=== PATIENT | male | born 1945 | race Caucasian/White ===

== ENCOUNTER 2018-06-11 20:08 | Observation (INO) | payer MEDICARE ==
[2018-06-11 20:09] VITALS: BMI 19.8
[2018-06-11] MEDS ORDERED: Albuterol-Ipratrop 3 mg / 0.5 (3 ml) UD IH STA (21:35)
[2018-06-11] MEDS ORDERED: Albuterol-Ipratrop 3 mg / 0.5 (3 ml) UD ONE (21:43)
[2018-06-11 22:00] LABS: BASO # 0.1 K/uL (0.0-0.2); BASO % 0.9 % (0.0-2.0); EOS # 0.2 K/uL (0.0-0.7); EOS % 3.3 % (0.0-4.0); HEMOGLOBIN 9.1 g/dL (12.0-18.0); LYMPH # 0.7 K/uL (1.0-4.3); MEAN CELL VOLUME 97.2 fL (80.0-94.0); MEAN CORPUSCULAR HEMOGLOBIN 31.5 pg (27.0-31.0); MEAN CORPUSCULAR HGB CONC 32.4 g/dL (33.0-37.0); MONO # 0.7 K/uL (0.0-0.8); MONO % 11.6 % (0.0-10.0); NEUT # 4.5 K/uL (1.8-7.0); NEUT % 73.2 % (50.0-75.0); NRBC % 0.1 % (0.0-2.0); RBC 2.9 Mil/uL (4.40-5.90); RED CELL DISTRIBUTION WIDTH 16.3 % (11.5-14.5); WHITE BLOOD COUNT 6.1 K/uL (4.8-10.8)
[2018-06-11 22:03] LABS: INR 1.3; PROTHROMBIN TIME 14.2 SECONDS (9.7-12.2)
[2018-06-11 22:06] LABS: ALBUMIN 3.3 g/dL (3.5-5.0); CALCIUM 8.6 mg/dl (8.6-10.4)
--- NOTE | 2018-06-11 23:41 | C.PDOC ---
History Of Present Illness [facility] due to L[facility] swelling to rule out DVT. However, the pt was sent during the evening time while vascular US is only available during the day time in this hospital. Time Seen by Provider: 06/11/18 21:16 Chief Complaint (Nursing): Upper Extremity Problem/Injury History Per: Patient, Other ([facility] records) Onset/Duration Of Symptoms: Days (about 1 week) Current Symptoms Are (Timing): Still Present Severity: Moderate Additional History Per: [facility], Prior Records Past Medical History Reviewed: Historical Data, Nursing Documentation, Vital Signs Vital Signs: Last Vital Signs Temp 98.3 F 06/11/18 20:19 Pulse 61 06/11/18 20:19 Resp 20 06/11/18 20:19 BP 93/58 L 06/11/18 20:19 Pulse Ox 93 L 06/11/18 20:19 - Medical History PMH: Anxiety, CHF, COPD, HTN, Hyperlipidemia, Hypothyroidism Surgical History: Pacemaker Family History: States: Unknown Family Hx - Social History Hx Alcohol Use: No Hx Substance Use: No - Immunization History Hx Tetanus Toxoid Vaccination: Yes Hx Influenza Vaccination: Yes Hx Pneumococcal Vaccination: Yes Review Of Systems Except As Marked, All Systems Reviewed And Found Negative. Constitutional: Negative for: Fever Cardiovascular: Negative for: Chest Pain Respiratory: Positive for: Shortness of Breath Gastrointestinal: Negative for: Vomiting, Abdominal Pain Musculoskeletal: Negative for: Neck Pain, Arm Pain, Back Pain, Hand Pain, Leg Pain Neurological: Negative for: Weakness, Numbness Physical Exam - Physical Exam Appears: Chronically Ill Skin: Warm, Dry Head: Atraumatic, Normacephalic Eye(s): bilateral: PERRL Neck: Normal ROM, Supple Cardiovascular: Rhythm Regular Respiratory: No Accessory Muscle Use, Wheezing (mild) Gastrointestinal/Abdominal: Soft, No Tenderness Back: No CVA Tenderness Extremity: Normal ROM, No Tenderness, Capillary Refill (wnl), Swelling (Distal left arm/proximal left forearm) Pulses: Left Radial: Normal Neurological/Psych: Oriented x3, Normal Motor, Normal Sensation ED Course And Treatment - Laboratory Results Result Diagrams: 06/11/18 21:49 06/11/18 21:49 O2 Sat by Pulse Oximetry: 93 - Radiology CXR: Interpreted by Me, Viewed By Me CXR Interpretation: Yes: Cardiomegaly - Other Rad Left forearm x-rays X-Ray: Interpreted by Me, Viewed By Me Interpretation: No acute fx. Disposition Discussed With DrDionna: Jacki Edmondson Comment: He will keep pt for observation on his service overnight and will obtain a LUE duplex to r/o DVT in the AM. Doctor Will See Patient In The: Hospital Counseled Patient/Family Regarding: Studies Performed, Diagnosis - Disposition Disposition: HOSPITALIZED Disposition Time: 23:46 Condition: FAIR - Clinical Impression Clinical Impression: Left upper extremity swelling
[2018-06-12] MEDS ORDERED: Magnesium Hydroxide Susp 30 ml UD PO PRN (00:29)
[2018-06-12] MEDS ORDERED: Sod Polystyrene Sulf 15 gm/60 ml Susp PO PRN (00:29)
[2018-06-12] MEDS ORDERED: Albuterol-Ipratrop 3 mg / 0.5 (3 ml) UD IH PRN ×2 (00:29→19:30)
[2018-06-12] MEDS ORDERED: LEVALBUTEROL HCL 1.25 MG IH PRN ×2 (00:29→19:30)
[2018-06-12] MEDS ORDERED: PETROLATUM TP SCH (06:00)
[2018-06-12] MEDS ORDERED: Bacitracin Ointment 30 GM TUBE TOP SCH (06:00)
[2018-06-12] MEDS ORDERED: ZINC OXIDE TP SCH (06:00)
[2018-06-12] MEDS ORDERED: [UNRECOGNIZED DRUG - OTHER] TP SCH (06:00)
[2018-06-12] MEDS ORDERED: Levothyroxine 50 MCG TAB PO SCH (06:30)
[2018-06-12] MEDS: (Novolog) Insulin Aspart, Recombinant 100 u/ml 10 ml vial SC SCH ×3 (08:08→17:45)
--- NOTE | 2018-06-12 09:14 | RAD ---
Date of service: 06/11/2018 PROCEDURE: Radiographs of the Left Forearm HISTORY: Proximal swelling COMPARISON: None available. TECHNIQUE: Frontal and lateral views obtained. FINDINGS: BONES: No fracture or destructive lesion. No periosteal reaction seen to suggest osteomyelitis. Negative ulnar variance suggested JOINT SPACES: Advanced arthrosis hyper trophic elbow joint OTHER FINDINGS: Subcutaneous reticulated edema no gas-forming cellulitis noted. IMPRESSION: No fracture or lytic lesion. No radiographic evidence of osteomyelitis. . Diffuse subcutaneous reticulated edema consistent with lymphedema and/or cellulitis. No gas-forming cellulitis suggested. Hyper trophic elbow arthrosis
--- NOTE | 2018-06-12 09:20 | RAD ---
Date of service: 06/11/2018 HISTORY: Left forearm swelling. Wheezing. COMPARISON: 10/04/2013 FINDINGS: LUNGS: There is vague increased opacity possibly due to summation of soft tissues of the anterior right ribs and posterior right ribs in the lateral mid right lung zone compared the prior study. No dense consolidation seen. PLEURA: No significant pleural effusion identified, no pneumothorax apparent. CARDIOVASCULAR: Cardiomegaly. Position/ configuration of pacemaker Satisfactory. Midline sternotomy. Mitral valvular prosthesis re- suggested. OSSEOUS STRUCTURES: No significant abnormalities. VISUALIZED UPPER ABDOMEN: Normal. OTHER FINDINGS: None. IMPRESSION: Vague increased opacity lateral right mid lung zone possibly due to summation of soft tissues. Consider bilateral oblique views and/or a noncontrast CT chest to clarify -if needed
[2018-06-12] MEDS ORDERED: Budesonide 0.5 mg/2 ml Inhal Susp UD IH SCH ×2 (10:00→20:00)
[2018-06-12] MEDS ORDERED: Enoxaparin 40 mg Syringe SC SCH (10:00)
[2018-06-12] MEDS ORDERED: Home Med 1 UNIT (Multivitamin [Multivitamins] 1 EACH) PO SCH (10:00)
[2018-06-12 11:33] LABS: BASO # 0.1 K/uL (0.0-0.2); BASO % 0.9 % (0.0-2.0); EOS # 0.2 K/uL (0.0-0.7); EOS % 2.8 % (0.0-4.0); HEMOGLOBIN 9.5 g/dL (12.0-18.0); LYMPH # 0.7 K/uL (1.0-4.3); LYMPH % 12.4 % (20.0-40.0); MEAN CELL VOLUME 96.9 fL (80.0-94.0); MEAN CORPUSCULAR HEMOGLOBIN 31.9 pg (27.0-31.0); MEAN CORPUSCULAR HGB CONC 32.9 g/dL (33.0-37.0); MEAN PLATELET VOLUME 7.7 fL (7.2-11.7); MONO # 0.6 K/uL (0.0-0.8); MONO % 11.3 % (0.0-10.0); NEUT # 4.1 K/uL (1.8-7.0); NEUT % 72.6 % (50.0-75.0); NRBC % 0.1 % (0.0-2.0); RBC 2.99 Mil/uL (4.40-5.90); WHITE BLOOD COUNT 5.7 K/uL (4.8-10.8)
[2018-06-12 11:44] LABS: CALCIUM 8.6 mg/dl (8.6-10.4); URIC ACID 7.1 mg/dL (3.5-8.5)
[2018-06-12] MEDS: Sacubitril/Valsartan 49-51 Tab PO SCH ×2 (11:44→17:46)
--- NOTE | 2018-06-12 15:28 | CP.PCM.PN ---
Subjective - Date & Time of Evaluation Date of Evaluation: 06/12/18 Time of Evaluation: 15:28 - Subjective Subjective: alert, awake, no sob or leg pains, lower extremity swelling remains. Objective - Vital Signs/Intake and Output Vital Signs (last 24 hours): Temp Pulse Resp BP Pulse Ox 98 F 72 20 122/69 98 06/12/18 07:30 06/12/18 07:30 06/12/18 07:30 06/12/18 07:30 06/12/18 07:30 - Medications Medications: Current Medications Acetaminophen (Tylenol 325mg Tab) 650 mg PO Q4 PRN PRN Reason: Pain, Mild (1-3) Albuterol/Ipratropium (Duoneb 3 Mg/0.5 Mg (3 Ml) Ud) 3 ml IH Q4H PRN PRN Reason: wheezing/sob Allopurinol (Zyloprim) 100 mg PO DAILY [facility] Last Admin: 06/12/18 10:40 Dose: 100 mg Alprazolam (Xanax) 0.25 mg PO HS PRN PRN Reason: Anxiety Stop: 06/19/18 00:30 Aspirin (Aspirin Chewable) 81 mg PO DAILY [facility] Last Admin: 06/12/18 10:40 Dose: 81 mg Bacitracin (Bacitracin) 30 gm TOP QSHIFT [facility] Last Admin: 06/12/18 13:45 Dose: 1 applic Budesonide (Pulmicort Respules) 0.5 mg IH BID [facility] Carvedilol (Coreg) 6.25 mg PO Q12 [facility] Last Admin: 06/12/18 10:40 Dose: 6.25 mg Clopidogrel Bisulfate (Plavix) 75 mg PO DAILY [facility] Last Admin: 06/12/18 10:39 Dose: 75 mg Enoxaparin Sodium (Lovenox) 40 mg SC DAILY [facility] Last Admin: 06/12/18 10:40 Dose: 40 mg Famotidine (Pepcid) 20 mg PO DAILY [facility] Last Admin: 06/12/18 10:39 Dose: 20 mg Folic Acid (Folic Acid) 1 mg PO DAILY [facility] Last Admin: 06/12/18 10:39 Dose: 1 mg Home Med (Levalbuterol Hcl [Xopenex]) 1.25 mg IH TID PRN PRN Reason: Shortness of Breath Home Med (Multivitamin [Multivitamins]) 1 each PO DAILY [facility] Home Med (Zinc Oxide/Cl-Xylenol/Petrolat [Perishield Ointment]) 100 gm TP QSHIFT [facility] Insulin Aspart (Novolog) 0 unit SC ACHS [facility] PRN Reason: Protocol Last Admin: 06/12/18 12:35 Dose: 6 u Levothyroxine Sodium (Synthroid) 50 mcg PO DAILY@0630 [facility] Last Admin: 06/12/18 05:55 Dose: 50 mcg Magnesium Hydroxide (Milk Of Magnesia) 30 ml PO DAILY PRN PRN Reason: Constipation Risperidone (Risperdal Tab) 0.5 mg PO Q12 PRN PRN Reason: Psychosis Rosuvastatin Calcium (Crestor) 20 mg PO HS [facility] Sacubitril/Valsartan (Entresto 49 Mg-51 Mg) 1 tab PO BID [facility] Last Admin: 06/12/18 11:44 Dose: 1 tab Sodium Polystyrene Sulfonate (Kayexalate Susp) 15 gm PO DAILY PRN PRN Reason: elevated potassium Spironolactone (Aldactone) 25 mg PO DAILY [facility] Last Admin: 06/12/18 10:40 Dose: 25 mg Thiamine HCl (Vitamin B1 Tab) 100 mg PO DAILY [facility] Last Admin: 06/12/18 10:39 Dose: 100 mg - Labs Labs: 06/12/18 11:29 06/12/18 11:29 PT 14.2 SECONDS (9.7-12.2) H 06/11/18 21:49 INR 1.3 06/11/18 21:49 APTT 34 SECONDS (21-34) 06/11/18 21:49 Assessment and Plan - Assessment and Plan (Free Text) Assessment: Patient was sent from the half-way due to increase on the legs to rule out DVT. Patient is seen and examined, alert, awake, no complaints of chest pain or distress. Venous doppler study is negative fot DVT. Discussed with DR Edmondson, plan to send him back to the half-way on present medications.
--- NOTE | 2018-06-12 15:33 | PCM.HF ---
Heart Failure Core Measure - Heart Failure Left Ventricular Function to be assessed after discharge: Yes Beta-Winifred Prescribed: Carvedilol Aldosterone Antagonist Prescribed: Yes Implantable Cardioverter Defibrillator Therapy: Yes
[2018-06-12 16:50] VITALS: BP 119/76; PULSE 78; RESP 22; TEMP 98.1; O2SAT 95
[2018-06-12] MEDS ORDERED: Zinc Oxide Topical 30 gm Tube TOP SCH (22:00)
[2018-06-12] MEDS ORDERED: ROSUVASTATIN 20MG PO SCH (22:00)
--- NOTE | 2018-06-13 07:48 | HP ---
HISTORY OF PRESENT ILLNESS: The patient is a 72-year-old male who was in subacute rehabilitation and noticed to have left upper extremity swelling. The patient denied to have any history of trauma and denied to have any pain on the left upper extremity. The patient was brought to emergency room for evaluation and venous Doppler of the upper extremities was ordered, and the patient was admitted for further management. Other review of system is negative. ALLERGIES: NO KNOWN ALLERGIES. MEDICATIONS: Reviewed as per an MAR. PAST MEDICAL HISTORY: Hypertension, COPD, type 2 diabetes mellitus, hypothyroidism, coronary artery disease, degenerative spine disease. SOCIAL HISTORY: Ex-smoker. No EtOH or substance abuse. FAMILY HISTORY: Not contributory. PHYSICAL EXAMINATION: VITAL SIGNS: Blood pressure 119/76, temperature 98.1, respiratory rate 22, and pulse 78. HEENT: Pupils equal and reactive to light. Normal appearing mucosa of the conjunctivae, oropharynx and nasal membrane mucosa. NECK: Supple. No JVD. No carotid bruit. No lymph node. No thyromegaly. CHEST AND LUNGS: Bilateral symmetrical expansion. Good air exchange. No rales, no rhonchi. CARDIOVASCULAR SYSTEM: PMI not localized. S1, S2. No additional sounds. ABDOMEN: Normoactive bowel sounds. No tenderness. No organomegaly. No masses. EXTREMITIES: There is swelling of the left upper extremity compared to the right. 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 No neurological deficit could be appreciated. ASSESSMENT: 1. Swelling of the left upper extremity, rule out deep venous thrombosis. 2. Chronic obstructive pulmonary disease. 3. Coronary artery disease. 4. Hypertension. PLAN: Continue current medications, and follow the venous Doppler. If negative, we will discharge the patient back to [facility]. Jacki Edmondson MD
[2018-06-13] MEDS ORDERED: Multiple Vitamins Tab PO SCH (10:00)
--- NOTE | 2018-06-13 11:19 | VASCLAB ---
Date of service: 06/12/2018 PROCEDURE: Left Upper Extremity Venous Duplex Exam HISTORY: SWELLING PRIORS: None. TECHNIQUE: Left upper extremity, internal jugular, subclavian, axillary, brachial, ulnar, radial, basilic and upper cephalic veins were evaluated. Flow was assessed with color Doppler, compressibility, assessment of phasic flow and augmentation response. Report prepared by ELIANE Schmitz, RVT FINDINGS: LEFT: 1. Internal Jugular: 1.1. Compressibility - Fully compressible: Thrombus - None : Flow - Phasic: Augmentation -Normal: Reflux - None. 2. Subclavian: 2.1. Compressibility - Fully compressible: Thrombus - None : Flow - Phasic: Augmentation -Normal: Reflux - None. 3. Axillary: 3.1. Compressibility - Fully compressible: Thrombus - None : Flow - Phasic: Augmentation -Normal: Reflux - None. 4. Brachial: 4.1. Compressibility - Fully compressible: Thrombus - None: Flow - Phasic: Augmentation -Normal: Reflux - None. 5. Ulnar: 5.1. Compressibility - Fully compressible: Thrombus - None: Flow - Phasic: Augmentation -Normal: Reflux - None. 6. Radial: 6.1. Compressibility - Fully compressible: Thrombus - None: Flow - Phasic: Augmentation - Normal: Reflux - None. 7. Cephalic: 7.1. Compressibility - Fully compressible: Thrombus - None: Flow - Phasic: Augmentation -Normal: Reflux - None. 8. Basilic: 8.1. Compressibility - Fully compressible: Thrombus - None: Flow - Phasic: Augmentation -Normal: Reflux - None. OTHER FINDINGS: Left: None. IMPRESSION: Left: No evidence of vein thrombosis of the left upper extremity with excellent venous flow. Normal valve function noted of the left side. Normal venous flow noted in the right internal jugular and right subclavian veins.
--- NOTE | 2018-06-13 20:32 | DS ---
REASON FOR ADMISSION: This is a 72-year-old male who was in subacute rehabilitation and admitted for left upper extremity edema to rule out deep venous thrombosis. COURSE OF HOSPITALIZATION: The patient was admitted for observation from emergency room. The patient had a venous Doppler done that ruled out deep venous thrombosis. The patient was resumed to have his medications. FINAL DIAGNOSES: Dependent edema of the left upper extremity, chronic obstructive pulmonary disease, hypertension, type 2 diabetes mellitus, hypothyroidism, coronary artery disease. [facility] MD [place]
== END 2018-06-12 20:04 ==
LOC: C.ER 20:08 → C.9E 23:47 → C.6T 06-12 02:21
PROVIDERS: ADMIT Internal Medicine; ATTEND Internal Medicine
DX: M79.89 Other specified soft tissue disorders (principal); E03.9 Hypothyroidism, unspecified; E11.9 Type 2 diabetes mellitus without complications; I11.0 Hypertensive heart disease with heart failure; I25.10 Atherosclerotic heart disease of native coronary artery without angina pectoris; I50.9 Heart failure, unspecified; J44.9 Chronic obstructive pulmonary disease, unspecified; E78.5 Hyperlipidemia, unspecified; Z87.891 Personal history of nicotine dependence
CPT/HCPCS: 36415; 71045; 73090; 80048; 80053; 82948; 84550; 85025; 85378; 85610; 85730; 93971; 94640; G0378; J1650